=== PATIENT | female | born 1935 | race Caucasian/White ===

== ENCOUNTER 2017-05-11 11:35 | Emergency (ER) | payer MEDICARE, OTHER ==
[2017-05-11 11:51] VITALS: BP 106/60
--- NOTE | 2017-05-11 12:25 | EDM.PDOC ---
ED HPI GENERAL MEDICAL PROBLEM - General Stated Complaint: BAD COUGH Time Seen by Provider: 05/11/17 11:35 Source of Information: Reports: Patient History Limitations: Reports: No Limitations - History of Present Illness INITIAL COMMENTS - FREE TEXT/NARRATIVE: 82-year-old female with a bad cough for 24 hours. No fever or productive sputum. She has had viral colds in the past which has responded well to one or 2 days of Tussionex. She had an old prescription and tried a dose this morning but it didn't help but it's over 3 years old. No nausea or vomiting. - Related Data Allergies Allergy/AdvReac Type Severity Reaction Status Date / Time No Known Allergies Allergy Verified 05/11/17 12:00 Home Meds: Home Meds Ascorbic Acid 500 mg PO DAILY 12/27/14 [History] Aspirin 1 tab PO DAILY 05/11/17 [History] Vit A/Vit C/Vit E/Zinc/Copper [Preservision] 1 tab PO DAILY 05/11/17 [History] Past Medical History HEENT History: Reports: Hard of Hearing, Impaired Vision Cardiovascular History: Reports: Hypertension Respiratory History: Reports: Pneumonia, Recurrent [employer] History: Reports: Neurological History: Reports: TIA - Past Surgical History HEENT Surgical History: Reports: Cataract Surgery, Tonsillectomy GI Surgical History: Reports: Appendectomy, Cholecystectomy Musculoskeletal Surgical History: Reports: Hip Replacement Other Musculoskeletal Surgeries/Procedures:: bilateral hip replacement Social & Family History - Tobacco Use Smoking Status *Q: Never Smoker Second Hand Smoke Exposure: No - Alcohol Use Days Per Week of Alcohol Use: 0 - Recreational Drug Use Recreational Drug Use: No ED ROS GENERAL - Review of Systems Review Of Systems: See Below Constitutional: Denies: Fever, Chills, Malaise HEENT: Reports: Throat Pain (started with a sore throat 2 days ago) Respiratory: Reports: Cough, Sputum. Denies: Shortness of Breath GI/Abdominal: Denies: Nausea, Vomiting Skin: Reports: No Symptoms Neurological: Denies: Headache ED EXAM, GENERAL - Physical Exam Exam: See Below Exam Limited By: No Limitations General Appearance: Alert, No Apparent Distress Respiratory/Chest: No Respiratory Distress, Lungs Clear Cardiovascular: Regular Rate, Rhythm GI/Abdominal: Non-Tender Neurological: Alert, Oriented Psychiatric: Normal Affect, Normal Mood Skin Exam: Warm, Dry Course - Vital Signs Last Recorded V/S: Last Vital Signs Temp 98.1 F 05/11/17 11:59 Pulse 114 H 05/11/17 11:59 Resp 18 05/11/17 11:59 BP 106/60 05/11/17 11:59 Pulse Ox 94 L 05/11/17 11:59 - Re-Assessments/Exams Free Text/Narrative Re-Assessment/Exam: 05/11/17 12:24 patient has a very likely viral URI with cough, afresh Tussionex prescription was given for 4 ounces. She will use as directed and recheck if worsening or concerns. Departure - Departure Time of Disposition: 12:37 Disposition: Home, Self-Care 01 Condition: Good Clinical Impression: Acute bronchitis, viral - Discharge Information Instructions: Acute Bronchitis, [id number] Referrals: Jono Romero PA-C [Primary Care Provider] - Forms: ED Department Discharge Care Plan Goals: Use cough medicine as prescribed, rest and get plenty of fluids. Return anytime if worsening such as increasing shortness of breath or higher fever or pain.
== END 2017-05-11 12:37 | disposition home or self-care (01) ==
LOC: JP.ED 11:35
DX: J20.8 Acute bronchitis due to other specified organisms (principal); H54.7 Unspecified visual loss; I10 Essential (primary) hypertension; Z87.01 Personal history of pneumonia (recurrent); Z86.73 Personal history of transient ischemic attack (TIA), and cerebral infarction without residual deficits; Z98.890 Other specified postprocedural states; Z90.49 Acquired absence of other specified parts of digestive tract; Z79.899 Other long term (current) drug therapy; Z96.649 Presence of unspecified artificial hip joint; Z79.82 Long term (current) use of aspirin
CPT/HCPCS: 99283